=== PATIENT | male | born 1975 ===

== ENCOUNTER 2018-05-12 13:16 | Emergency (ER) | payer OTHER ==
[2018-05-12 13:39] VITALS: BP 122/81; PULSE 62; RESP 16; TEMP 98.1; O2SAT 99
--- NOTE | 2018-05-12 13:53 | ED PDOC ---
Upper Extremity Pain/Injury Time Seen by Provider: 05/12/18 13:48 Chief Complaint (Nursing): Upper Extremity Problem/Injury Chief Complaint (Provider): left arm pain History Per: Patient Additional Complaint(s): 43-year-old [id number]-cthvyows male presents with pain to right elbow. 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 Early after he noticed swelling to right elbow. Patient is able to bend elbow but has pain when doing so. No meds taken for pain relief. Past Medical History Reviewed: Historical Data, Nursing Documentation, Vital Signs Vital Signs: Last Vital Signs Temp 98.1 F 05/12/18 13:36 Pulse 62 05/12/18 13:36 Resp 16 05/12/18 13:36 BP 122/81 05/12/18 13:36 Pulse Ox 99 05/12/18 13:36 - Medical History PMH: No Chronic Diseases - Surgical History Surgical History: No Surg Hx - Family History Family History: States: No Known Family Hx - Living Arrangements Living Arrangements: With Family - Social History Current smoker - smoking cessation education provided: No Alcohol: None Drugs: Denies - Home Medications Home Medications: Ambulatory Orders Medication Instructions Recorded Ibuprofen [Motrin Tab] 800 mg PO Q8 PRN #24 tab 05/12/18 - Allergies Allergies/Adverse Reactions: Allergies Allergy/AdvReac Type Severity Reaction Status Date / Time No Known Allergies Allergy Verified 05/12/18 13:35 Review of Systems ROS Statement: Except As Marked, All Systems Reviewed And Found Negative Musculoskeletal: Positive for: Arm Pain (right elbow pain) Physical Exam - Reviewed Nursing Documentation Reviewed: Yes Vital Signs Reviewed: Yes - Physical Exam Appears: Positive for: Well, Non-toxic, No Acute Distress Skin: Positive for: Normal Color. Negative for: Rash Eye Exam: Positive for: Normal appearance Neck: Positive for: Normal, Painless ROM Cardiovascular/Chest: Positive for: Regular Rate, Rhythm Respiratory: Positive for: Normal Breath Sounds. Negative for: Wheezing, Respiratory Distress Extremity: Positive for: Other (Moderate swelling and tenderness right olecranon, no warmth or erythema noted, full range of motion of the elbow with pain, strong right handgrip, normal distal sensation) Neurologic/Psych: Positive for: Alert, Oriented - ECG O2 Sat by Pulse Oximetry: 99 Pulse Ox Interpretation: Normal - Other Rad right elbow x-ray X-Ray: Interpreted by Me, Viewed By Me X-Ray Interpretation: STS, no fx, no dis Medical Decision Making Medical Decision Makin43 year old with right elbow pain and swelling Plan: X-ray right elbow IM toradol - ordered but patient refused Patient given prescriptions for Naprosyn and Flexeril. Sling was applied to arm. Patient was referred to orthopedist on-call for follow-up. Procedures - Splinting Location: right arm Pre-Made Type: sling Pre-Proc Neuro Vasc Exam: normal Post-Proc Neuro Vasc Exam: normal Disposition - Clinical Impression Clinical Impression: Elbow sprain, Bursitis of elbow - Patient ED Disposition Is Patient to be Admitted: No Counseled Patient/Family Regarding: Studies Performed, Diagnosis, Need For Followup, Rx Given - Disposition Referrals: Raghu Cano MD [Medical Doctor] - Disposition: Routine/Home Disposition Time: 15:00 Condition: STABLE Additional Instructions: Ice and elevate affected area. Rest and avoid heavy lifting. Take prescription meds as directed. Follow-up with orthopedist in 2-3 days. Prescriptions: Ibuprofen [Motrin Tab] 800 mg PO Q8 PRN #24 tab PRN Reason: Pain, Moderate (4-7) Instructions: Bursitis (DC), Elbow Sprain (DC) Forms: [facility] (Mongolian), [facility] ED School/Work Excuse
--- NOTE | 2018-05-12 14:23 | RAD ---
Date of service: 05/12/2018 PROCEDURE: Radiographs of the right elbow. HISTORY: trauma COMPARISON: No prior. FINDINGS: BONES: No acute fracture. JOINTS: Unremarkable. SOFT TISSUES: Normal. JOINT EFFUSION: None. OTHER FINDINGS: None. IMPRESSION: No demonstrated fracture or dislocation.
== END 2018-05-12 15:25 | disposition home or self-care (01) ==
LOC: H.ER 13:16
DX: S53.402A Unspecified sprain of left elbow, initial encounter (principal); M70.22 Olecranon bursitis, left elbow
CPT/HCPCS: 73080; 96372; 99282; J1885